=== PATIENT | female | born 1960 | race Asian ===

== ENCOUNTER 2017-10-07 18:12 | Emergency (ER) | payer OTHER ==
[2017-10-07] MEDS ORDERED: MORPHINE 10 MG/ML VIAL IVP STA (18:45)
[2017-10-07] MEDS ORDERED: SODIUM CHLORIDE 0.9% 1,000 ML IV ONE (18:45)
[2017-10-07 19:03] LABS: BILIRUBIN,URINE NEGATIVE (NEGATIVE); GLUCOSE, URINE (UA) NEGATIVE (NEGATIVE); KETONES,URINE (UA) NEGATIVE (NEGATIVE); LEUKOCYTE ESTERASE, URINE NEGATIVE (NEGATIVE); NITRITE,URINE NEGATIVE (NEGATIVE); OCCULT BLOOD,URINE NEGATIVE (NEGATIVE); PROTEIN,URINE NEGATIVE (NEGATIVE); UROBILINOGEN,URINE 0.2 (NORMAL) E.U./dL (NORMAL)
[2017-10-07 19:08] LABS: CLARITY,URINE CLEAR (CLEAR)
[2017-10-07] MEDS ORDERED: IOPAMIDOL-300 100 ML VIAL ONE (19:34)
[2017-10-07 19:56] LABS: BASOPHILS # (AUTO) 0.1 10^3/uL (0.0-0.1); BASOPHILS % (AUTO) 0.9 %; EOSINOPHILS # (AUTO) 0.1 10^3/uL (0.0-0.7); EOSINOPHILS % (AUTO) 1.5 %; LYMPHOCYTES # (AUTO) 1.4 10^3/uL (1.5-3.5); LYMPHOCYTES % (AUTO) 18.4 %; MEAN CORPUSCULAR HEMOGLOBIN 28.9 pg (27.0-31.0); MEAN CORPUSCULAR HGB CONC 31.4 g/dL (32.0-36.0); MEAN CORPUSCULAR VOLUME 91.9 fL (81.0-99.0); MEAN PLATELET VOLUME 7.4 fL (7.9-10.8); MONOCYTES # (AUTO) 0.4 10^3/uL (0.0-1.0); MONOCYTES % (AUTO) 5.6 %; NEUTROPHILS # (AUTO) 5.5 10^3/uL (1.5-6.6); NEUTROPHILS % (AUTO) 73.6 %; PLT - PLATELET COUNT 297 10^3/uL (130-450); RED BLOOD COUNT 4.17 10^6/uL (4.20-5.40); RED CELL DISTRIBUTION WIDTH 15.5 % (12.0-15.0); WHITE BLOOD COUNT 7.5 x10^3/uL (4.8-10.8)
[2017-10-07 20:10] LABS: ALBUMIN 3.6 g/dL (3.2-5.5); ALBUMIN/GLOBULIN RATIO 0.8 (1.0-2.2); BILIRUBIN,TOTAL 0.5 mg/dL (0.2-1.0); CALCIUM 9.6 mg/dL (8.5-10.3); CREATININE 0.7 mg/dL (0.4-1.0)
[2017-10-07] MEDS ORDERED: IOPAMIDOL-300 100 ML VIAL IVP ONE (21:18)
--- NOTE | 2017-10-07 21:43 | CT Report ---
Procedure Date: 10/07/2017 Accession Number: [id number] / [id number] Procedure: CT - Abdomen/Pelvis W/ CPT Code: FULL RESULT: EXAM: CT ABDOMEN AND PELVIS EXAM DATE: 10/07/2017 09:01 PM. CLINICAL HISTORY: Left lower quadrant pain. COMPARISONS: 01/12/2014. TECHNIQUE: Routine helical CT imaging was performed through the abdomen and pelvis. IV contrast: 85 ML ISOVUE 300. Enteric contrast: No. Reconstructions: Coronal and sagittal. In accordance with CT protocol optimization, one or more of the following dose reduction techniques were utilized for this exam: automated exposure control, adjustment of mA and/or KV based on patient size, or use of iterative reconstructive technique. FINDINGS: Lung Bases: Multiple small nodules seen in the right lung base measuring up to 8 mm in the right lower lobe. 16 mm subpleural nodular density in the left lower lobe. Left lower lobe subsegmental atelectasis or scar. Liver: 6 mm hypoattenuating lesion in the right lobe is not well characterized. Gallbladder/Bile Ducts: Unremarkable. Spleen: Normal. Pancreas: Normal. Adrenal Glands: Mild thickening of the left adrenal gland. Kidneys: No hydronephrosis. 1.2 cm hypoattenuating left renal cortical lesion. Peritoneal Cavity/Bowel: No bowel obstruction . No free fluid, free air or lymphadenopathy. No definite mass. No acute inflammatory changes. No evidence of diverticulitis or colitis. The appendix is well visualized and normal. Pelvic Organs: Mildly distended urinary bladder without wall thickening. Vasculature: No aneurysms or other significant abnormality. Bones: Extensive predominantly lytic osseous metastases throughout the visualized skeleton, primarily involving the spine and pelvis. There are numerous lesions in the sacrum. Permeative appearance of the left iliac wing. Probable healing pathologic fracture of the right inferior pubic ramus. No additional fracture identified. Other: Surgical material in the right breast. IMPRESSION: 1. Extensive osseous metastatic disease with permeative appearance of the sacrum and left iliac wing. Probable healing pathologic fracture of the right inferior pubic ramus. 2. Multiple nodules in the lung bases are nonspecific but suspicious for metastatic disease given the osseous findings. 3. No acute intra-abdominal abnormality. Mildly distended urinary bladder. RADIA
--- NOTE | 2017-10-07 21:56 | ED Physician Documentation ---
History of Present Illness - Stated complaint Stated Complaint: LOW BACK PX - Chief complaint Chief Complaint: Back Pain - History obtained from History obtained from: Patient, Family - History of Present Illness Timing: Chronic - Additonal information Additional information: Patient is a 56 year old female who is presenting to the emergency department for hip and abdominal pain. Patient has had pain in her hip and back for a few days. Patient went to see her doctor on the [employer] [facility] who sent her in for further evaluation. patient's primary care physician was worried that the patient had metastatic disease but also diverticulosis and has not had care in awhile. Review of Systems Constitutional: denies: Fever, Chills Cardiac: denies: Chest pain / pressure, Palpitations, Pedal edema Respiratory: denies: Dyspnea, Cough, Wheezing GI: reports: Abdominal Pain, Nausea. 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 HEENT: None Psych: None Musculoskeletal: None Derm: None - Present Medications Home Medications: Ambulatory Orders Medication Instructions Recorded Confirmed Oxycodone HCl/Acetaminophen 1 - 2 each PO Q6H PRN #14 tablet 10/07/17 [Percocet 5-325 mg Tablet] Sennosides [Senna] 8.6 mg PO BID #20 tablet 10/07/17 - Allergies Allergies/Adverse Reactions: Allergies Allergy/AdvReac Type Severity Reaction Status Date / Time codeine Allergy Rash Verified 10/07/17 18:22 - Social History Does the pt smoke?: No Smoking Status: Never smoker Does the pt drink ETOH?: No Does the pt have substance abuse?: No - Immunizations Immunizations are current?: Yes - POLST Patient has POLST: No PD ED PE NORMAL - Vitals Vital signs reviewed: Yes - General General: Alert and oriented X 3 - HEENT HEENT: Atraumatic - Neck Neck: Supple, no meningeal sign - Cardiac Cardiac: RRR, No murmur - Respiratory Respiratory: No respiratory distress - Neuro Neuro: Alert and oriented X 3, No motor deficit, Normal speech PD ED PE EXPANDED - General General: Alert, In Pain - HEENT HEENT: Dry mucous membranes - Abdomen Abdomen: Tender to palpation. No: Rebound, Guarding, LLQ - Extremities Extremities: Right hip (tenderness to palpation of right hip and back) Results - Vitals Vitals: Vital Signs - 24 hr 10/07/17 10/07/17 10/07/17 18:19 19:14 20:09 Temperature 36.5 C Heart Rate 71 71 71 Respiratory 18 16 16 Rate Blood Pressure 148/84 H 145/80 H 153/93 H O2 Saturation 98 97 97 10/07/17 10/07/17 20:13 21:10 Temperature Heart Rate 96 Respiratory 16 16 Rate Blood Pressure 145/87 H O2 Saturation 96 Oxygen O2 Source Room air - Labs Labs: Laboratory Tests 10/07/17 10/07/17 10/07/17 19:00 19:50 19:50 WBC 7.5 RBC 4.17 L Hgb 12.0 Hct 38.3 MCV 91.9 MCH 28.9 MCHC 31.4 L RDW 15.5 H Plt Count 297 MPV 7.4 L Neut # (Auto) 5.5 Lymph # (Auto) 1.4 L [place] # (Auto) 0.4 Eos # (Auto) 0.1 Baso # (Auto) 0.1 Absolute Nucleated RBC 0.01 Nucleated RBC % 0.1 Sodium 137 Potassium 3.9 Chloride 100 L Carbon Dioxide 26 Anion Gap 11.0 BUN 16 Creatinine 0.7 Estimated GFR (MDRD) 86 L Glucose 138 H Calcium 9.6 Total Bilirubin 0.5 AST 61 H ALT 27 Alkaline Phosphatase 387 H Total Protein 8.0 Albumin 3.6 Globulin 4.4 H Albumin/Globulin Ratio 0.8 L Lipase 61 H Urine Color YELLOW Urine Clarity CLEAR Urine pH 6.0 Ur Specific [place] <=1.005 Urine Protein NEGATIVE Urine Glucose (UA) NEGATIVE Urine Ketones NEGATIVE Urine Occult Blood NEGATIVE Urine Nitrite NEGATIVE Urine Bilirubin NEGATIVE Urine Urobilinogen 0.2 (NORMAL) Ur Leukocyte Esterase NEGATIVE Ur Microscopic Review NOT INDICATED Urine Culture Comments NOT INDICATED - Rads (name of study) ct abd pelvis Radiology: Final report received, See rad report (multiple lesions consistent with metastatic disease) PD MEDICAL DECISION MAKING - ED course Complexity details: reviewed old records, reviewed results, re-evaluated patient , considered differential, d/w patient, d/w family ED course: patient was seen and examined at bedside. iv access was gained and labs were drawn. patient was treated with morphine and a fluid bolus. imaging was ordered. when patient returned from imaging the results were reviewed and consistent with metastatic disease. patient and family were made aware of the findings. follow up care was arranged and patient was stable for discharge with outpatient follow up. - Sepsis Event Vital Signs: Vital Signs - 24 hr 10/07/17 10/07/17 10/07/17 18:19 19:14 20:09 Temperature 36.5 C Heart Rate 71 71 71 Respiratory 18 16 16 Rate Blood Pressure 148/84 H 145/80 H 153/93 H O2 Saturation 98 97 97 10/07/17 10/07/17 20:13 21:10 Temperature Heart Rate 96 Respiratory 16 16 Rate Blood Pressure 145/87 H O2 Saturation 96 Oxygen O2 Source Room air Departure - Departure Disposition: 01 Home, Self Care Clinical Impression: Metastatic cancer to bone Condition: Good Instructions: Chronic Pain Manage Meds Follow-Up: RAJANI RAY PA-C [Primary Care Provider] - Tomorrow Prescriptions: Oxycodone HCl/Acetaminophen [Percocet 5-325 mg Tablet] 1 - 2 each PO Q6H PRN # 14 tablet PRN Reason: pain Sennosides [Senna] 8.6 mg PO BID #20 tablet Comments: Your symptoms today are likely being caused by metastatic disease to the bone. you have multiple lesions in your hips and spine. You also have lesions in your lungs. It is important that you call your doctor tomorrow to schedule an appointment with an oncologist. I have had an order placed so that our clinic here at the hospital will be calling you as well. you can take ibuprofen for pain and percocet for breakthrough pain. You should take it with a laxative or stool softener. You may return to the emergency department at any time for new , worsening or uncontrollable symptoms.
[2017-10-07] MEDS ORDERED: oxyCODONE/ACET 5/325 Prepack 4 PO STA (22:10)
[2017-10-07 23:15] VITALS: BP 156/80
== END 2017-10-07 23:00 | disposition home or self-care (01) ==
LOC: ED 18:12
DX: C79.51 Secondary malignant neoplasm of bone (principal); R91.8 Other nonspecific abnormal finding of lung field
CPT/HCPCS: 36415; 74177; 80053; 81003; 83690; 85025; 96361; 96374; 99284; Q9967; 81001; 87086

== ENCOUNTER 2020-01-17 17:08 | Outpatient (CLI) | payer OTHER | END 2020-01-17 17:09 | disposition EMS.NT | LOC: EMS 17:08 | PROVIDERS: ATTEND Surgery | DX: M54.9 Dorsalgia, unspecified (principal) ==

== ENCOUNTER 2020-01-17 18:09 | Emergency (ER) | payer OTHER ==
--- NOTE | 2020-01-17 18:34 | XRAY Report ---
PROCEDURE: Chest 1 View X-Ray INDICATIONS: Chest Pain TECHNIQUE: One view of the chest was acquired. COMPARISON: None FINDINGS: Surgical changes and devices: Right breast clips.. Lungs and pleura: No pleural effusions or pneumothorax. Minimal patchy bibasilar atelectasis. Mediastinum: Mediastinal contours appear normal. Cardiomegaly. Bones and chest wall: No suspicious bony lesions. Overlying soft tissues appear unremarkable. IMPRESSION: Cardiomegaly. Minimal patchy bibasilar atelectasis. Reviewed by: Montana Daly MD on 01/17/2020 6:33 PM PDT Approved by: Montana Daly MD on 01/17/2020 6:33 PM PDT Station ID: [id number]
[2020-01-17 19:00] LABS: BASOPHILS # (AUTO) 0.1 10^3/uL (0.0-0.1); BASOPHILS % (AUTO) 0.7 %; EOSINOPHILS # (AUTO) 0.2 10^3/uL (0.0-0.7); EOSINOPHILS % (AUTO) 2.2 %; LYMPHOCYTES # (AUTO) 1.4 10^3/uL (1.5-3.5); LYMPHOCYTES % (AUTO) 20.2 %; MEAN CORPUSCULAR HEMOGLOBIN 29.2 pg (27.0-31.0); MEAN CORPUSCULAR HGB CONC 31.4 g/dL (32.0-36.0); MEAN CORPUSCULAR VOLUME 92.9 fL (81.0-99.0); MEAN PLATELET VOLUME 10.8 fL (7.9-10.8); MONOCYTES # (AUTO) 0.5 10^3/uL (0.0-1.0); MONOCYTES % (AUTO) 7.4 %; NEUTROPHILS # (AUTO) 4.7 10^3/uL (1.5-6.6); NEUTROPHILS % (AUTO) 69.2 %; PLT - PLATELET COUNT 207 10^3/uL (130-450); RED CELL DISTRIBUTION WIDTH 13.1 % (12.0-15.0); WHITE BLOOD COUNT 6.7 x10^3/uL (4.8-10.8)
--- NOTE | 2020-01-17 19:13 | ED Physician Documentation ---
PD HPI CHEST PAIN - Stated complaint Stated Complaint: CP, RAPID HEART RATE - Chief complaint Chief Complaint: Cardiac - History obtained from History obtained from: Patient, Family - History of Present Illness Timing - onset: How many days ago (2) Timing - details: Gradual onset Pain level max: 3 Pain level now: 0 Quality: Pressure Location: Left chest Radiation: No: Jaw, Neck, Back, Abdominal, Left upper extremity, Right upper extremity Improved by: No: Rest, Oxygen, Nitro, ASA, Antacids, Other medication Worsened by: No: Exertion, Inspiration, Eating, Movement, Palpation, Position Associated symptoms: No: Shortness of air, Diaphoresis, Nausea, Vomiting, Feeling faint / dizzy, General Weakness Recently seen: Not recently seen - Additional information Additional information: Patient is a 59-year-old female who presents to the emergency department with chest pain 2 to 3 days ago, lasted approximately 30 seconds, she then had another episode of chest pain yesterday that lasted about 2 minutes. No chest pain today. Family brought in for evaluation. Currently asymptomatic. Nothing makes it better or worse. Chest pain is in the left upper chest. [place] like palpitations or her heart skipping a beat. Patient states that she has no medical history and only takes atenolol. Upon further history from the family, she has a history of metastatic breast cancer, she stopped taking her medications a year ago. She states that she "told her doctor". She does not state that her doctor agreed with her stopping the medications. She has not followed up with her doctor or oncology for over a year. She was told that her hemoglobin A1c was elevated, but not told that she was diabetic. She does not know about her cholesterol history. She denies any cardiac history. Review of Systems Ten Systems: 10 systems reviewed and negative Constitutional: denies: Fever, Chills Ears: denies: Ear pain Nose: denies: Rhinorrhea / runny nose, Congestion Throat: denies: Sore throat Cardiac: reports: Palpitations Respiratory: denies: Cough GI: denies: Abdominal Pain, Nausea, Vomiting, Diarrhea, Hematemesis : denies: Dysuria, Frequency, Hesitancy Skin: denies: Rash Musculoskeletal: denies: Neck pain, Back pain Neurologic: denies: Headache PD PAST MEDICAL HISTORY - Past Medical History Past Medical History: Yes Cardiovascular: Hypertension Respiratory: None Neuro: None Endocrine/Autoimmune: None GI: None 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 HEENT: None Psych: None Musculoskeletal: None Derm: None - Present Medications Home Medications: Ambulatory Orders Medication Instructions Recorded Confirmed Atenolol [Tenormin] 50 DAILY PM 01/17/20 - Allergies Allergies/Adverse Reactions: Allergies Allergy/AdvReac Type Severity Reaction Status Date / Time codeine Allergy Rash Verified 01/17/20 18:12 - Living Situation Living Situation: reports: With family Living Arrangement: reports: At home - Social History Does the pt smoke?: No Smoking Status: Never smoker Does the pt drink ETOH?: No Does the pt have substance abuse?: No - Immunizations Immunizations are current?: Yes - POLST Patient has POLST: No PD ED PE NORMAL - Vitals Vital signs reviewed: Yes - General General: Alert and oriented X 3, No acute distress, Well developed/nourished - HEENT HEENT: PERRL, Moist mucous membranes - Neck Neck: Supple, no meningeal sign - Cardiac Cardiac: RRR, No murmur, Strong equal pulses - Respiratory Respiratory: No respiratory distress, Clear bilaterally - Abdomen Abdomen: Soft, Non tender, Non distended - Derm Derm: Warm and dry - Extremities Extremities: No edema, No calf tenderness / cord - Neuro Neuro: Alert and oriented X 3 - Psych Psych: Normal mood, Normal affect Results - Vitals Vitals: Vital Signs - 24 hr 01/17/20 01/17/20 01/17/20 18:12 19:19 19:25 Temperature 36.5 C 36.8 C Heart Rate 65 63 64 Respiratory 16 22 19 Rate Blood Pressure 177/86 H 145/82 H 145/82 H O2 Saturation 96 96 95 01/17/20 20:00 Temperature 36.8 C Heart Rate 61 Respiratory 20 Rate Blood Pressure 148/88 H O2 Saturation 97 Oxygen O2 Source Room air - EKG (time done) 1808 Rate: Rate (enter#) (65) Rhythm: NSR [place]: Normal Intervals: Normal IA QRS: Normal Ischemia: Normal ST segments - Labs Labs: Laboratory Tests 01/17/20 01/17/20 01/17/20 18:49 18:49 18:49 WBC 6.7 RBC 4.80 Hgb 14.0 Hct 44.6 MCV 92.9 MCH 29.2 MCHC 31.4 L RDW 13.1 Plt Count 207 MPV 10.8 Neut # (Auto) 4.7 Lymph # (Auto) 1.4 L [place] # (Auto) 0.5 Eos # (Auto) 0.2 Baso # (Auto) 0.1 Absolute Nucleated RBC 0.00 Nucleated RBC % 0.0 Sodium 136 Potassium 3.8 Chloride 98 L Carbon Dioxide 25 Anion Gap 13.0 BUN 17 Creatinine 0.7 Estimated GFR (MDRD) 85 L Glucose 337 H Calcium 9.5 Total Bilirubin 0.9 AST 27 ALT 10 Alkaline Phosphatase 168 H Troponin I High Sens 3.3 Total Protein 7.8 Albumin 4.0 Globulin 3.8 Albumin/Globulin Ratio 1.1 Lipase 37 - Rads (name of study) chest X-ray Radiology: Prelim report reviewed, EMP read contemporaneously, See rad report (no acute abnormality.) PD MEDICAL DECISION MAKING - ED course Complexity details: reviewed results, re-evaluated patient, considered differential (No ST elevation OK, no aortic dissection, no PE, no tension pneumothorax, no aortic aneurysm), d/w patient, d/w family ED course: Patient is a 59-year-old female who presents to the emergency department with chest pain a few days ago, sounds more consistent with palpitations. No evidence of acute coronary syndrome on EKG, troponin or chest x-ray. She does appear to be a diabetic. She has been noncompliant with her metastatic breast cancer medications as well. Patient counseled at length along with her family about the importance of follow-up and to follow-up with her doctor regarding further care of her diabetes. Patient counseled regarding signs and symptoms for which I believe and urgent re-evaluation would be necessary. Patient with good understanding of and agreement to plan and is comfortable going home at this time This document was made in part using voice recognition software. While efforts are made to proofread this document, sound alike and grammatical errors may occur. Departure - Departure Disposition: 01 Home, Self Care Clinical Impression: Palpitations, Hyperglycemia Condition: Good Instructions: ED Chest Pain Atypical Unkn Cause, ED Hyperglycemia New Susp Diabetes Follow-Up: [facility]OM[facility] [Provider Group] - Within 1 week Comments: Your blood sugar is over 300 today. You need to follow-up with your doctor this week to discuss medications and further testing as it appears that you have diabetes. You also need your cholesterol rechecked. You will likely need restaging of your breast cancer as well and may need new medication for this. You need a cardiac stress test as well. These can all be arranged with your doctor. Return if you worsen. Discharge Date/Time: 01/17/20 20:11
[2020-01-17 19:15] LABS: ALBUMIN/GLOBULIN RATIO 1.1 (1.0-2.2); BILIRUBIN,TOTAL 0.9 mg/dL (0.2-1.0); CALCIUM 9.5 mg/dL (8.5-10.3); CREATININE 0.7 mg/dL (0.4-1.0); TOTAL PROTEIN 7.8 g/dL (6.7-8.2)
[2020-01-17 20:11] VITALS: BP 148/88
== END 2020-01-17 20:11 | disposition home or self-care (01) ==
LOC: ED 18:09
DX: R00.2 Palpitations (principal); R73.9 Hyperglycemia, unspecified; Z85.3 Personal history of malignant neoplasm of breast; I10 Essential (primary) hypertension
CPT/HCPCS: 36415; 71045; 80053; 83690; 84484; 85025; 93005; 99284

== ENCOUNTER 2023-01-09 08:55 | Emergency (ER) | payer OTHER ==
[2023-01-09 09:23] VITALS: BP 129/76; O2SAT 97
--- NOTE | 2023-01-09 09:23 | ED Physician Documentation ---
History of Present Illness - Stated complaint Stated Complaint: BACK PX - Chief complaint Chief Complaint: Back Pain - History obtained from History obtained from: Patient, Family - Additonal information Additional information: Patient is a 62-year-old female with a history of metastatic breast cancer presenting for the evaluation of right lower back pain into the right hip. She has had this pain previously and it started up again last night. She tried Tylenol and an ointment without any improvement. She was recently admitted to [facility] for hypercalcemia, confusion and MIRNA. Patient denies saddle anesthesia, bowel or bladder incontinence. who is with her states that she has some confusion regarding her recent hospitalization as patient does not feel that doctors explained to her what was going on. However he states that she has been doing better since being at home and that her mentation is back to baseline now. again denies that patient is confused today (contrary to triage note). From Discharge SUmmary [facility] (Dec 27 - Jan 02) Mee Aden is a 62 y.o. female with history of hypertension, type II diabetes, and right breast cancer with metastasis to left temporal dura and bone who presented to the ED with complaints of fatigue, nausea, confusion and abnormal labs. Patient admitted for severe hypercalcemia, MIRNA, confusion and vasogenic edema. Nephrology was consulted and she was given calcitonin, denosumab and NS gtt with improvement. Her MIRNA improved. She was started on decadron for vasogenic edema noted with left temporal dura mass. Hospital course was complicated by altered mental status with patient frequently refusing cares. Palliative care was consulted and patient was DNR/DNR with continued full treatment goals to moiz t extent. Patient was anxious to go home and family was very supportive. She had significantly elevated blood sugars in the setting of her type 2 diabetes and steroid use though refused glucose checks and insulin. Prior to discharge her glucose was greater than 400. I had a conversation with the patient and her family. The patient was adamant she wanted to leave and the family understood the risks of going home and the potential to develop DKA, worsening kidney injury, even . We discussed utilizing glipizide and this was prescribed in an effort for harm reduction given patient may be more compliant with this in the home setting. We planned for very close follow-up and monitoring of her blood sugars, kidney function and electrolytes. 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: Breast cancer : None HEENT: None Psych: None Musculoskeletal: None Derm: None - Past Surgical History /DEPUTY COMMISSIONER: section, Other - Present Medications Home Medications: Ambulatory Orders Medication Instructions Recorded Confirmed Atenolol [Tenormin] 50 DAILY PM 01/17/20 Lidocaine Patch 5% [Lidoderm Patch] 1 patch TOP DAILY PRN #10 patch 01/09/23 oxyCODONE [Roxicodone] 5 mg PO Q6H PRN #15 tablet 01/09/23 - Allergies Allergies/Adverse Reactions: Allergies Allergy/AdvReac Type Severity Reaction Status Date / Time codeine Allergy Rash Verified 01/17/20 18:12 - Social History Does the pt smoke?: No Smoking Status: Never smoker Does the pt drink ETOH?: No Does the pt have substance abuse?: No - Immunizations Immunizations are current?: Yes - POLST Patient has POLST: No PD ED PE NORMAL - General General: Alert and oriented X 3, No acute distress, Well developed/nourished - HEENT HEENT: Atraumatic, Moist mucous membranes, Pharynx benign - Neck Neck: Supple, no meningeal sign - Cardiac Cardiac: RRR, No murmur - Respiratory Respiratory: No respiratory distress, Clear bilaterally - Abdomen Abdomen: Normal bowel sounds, Soft, Non tender, Non distended - Back Back: No spinal TTP, Other (Mild right paralumbar tenderness to palpation into right hip) - Derm Derm: Warm and dry - Extremities Extremities: Other (Normal range of motion of right hip, no pelvic instability, distal pulses intact) Results - Vitals Vitals: Vital Signs - 24 hr 01/09/23 09:11 Temperature 37.1 C Heart Rate 69 Respiratory 14 Rate Blood Pressure 129/76 O2 Saturation 97 Oxygen O2 Source Room air - Labs Labs: Laboratory Tests 01/09/23 01/09/23 01/09/23 10:19 10:19 10:35 WBC 11.9 H RBC 3.17 L Hgb 9.3 L Hct 29.3 L MCV 92.4 MCH 29.3 MCHC 31.7 L RDW 14.0 Plt Count 284 MPV 8.7 Neut # (Auto) Not Reportable Lymph # (Auto) Not Reportable [place] # (Auto) Not Reportable Eos # (Auto) Not Reportable Baso # (Auto) Not Reportable Absolute Nucleated RBC Not Reportable Total Counted 100 Band Neuts % (Manual) 1 Abnorm Lymph % (Manual) 0 Myelocytes % 1 H Nucleated RBC % Not Reportable Neutrophils # (Manual) 9.5 H Lymphocytes # (Manual) 1.8 Monocytes # (Manual) 0.5 Eosinophils # (Manual) 0.0 Basophils # (Manual) 0.0 Nucleated RBCs 1 Differential Comment MANUAL DIFFERENTIAL WBC Morphology 1+ VACUOLATION RBC Morph Micro Appear 1+ HYPOCHROMASIA Sodium 133 L Potassium 4.3 Chloride 102 Carbon Dioxide 21 Anion Gap 10.0 BUN 39 H Creatinine 1.0 Estimated GFR (MDRD) 56 L Glucose 336 H Calcium 7.8 L Total Bilirubin 0.4 AST 20 ALT 12 Alkaline Phosphatase 439 H Total Protein 6.8 Albumin 3.3 Globulin 3.5 Albumin/Globulin Ratio 0.9 L Lipase 141 H Urine Color YELLOW Urine Clarity CLEAR Urine pH 6.0 Ur Specific Critz 1.010 Urine Protein NEGATIVE Urine Glucose (UA) >=1000 H Urine Ketones NEGATIVE Urine Occult Blood NEGATIVE Urine Nitrite NEGATIVE Urine Bilirubin NEGATIVE Urine Urobilinogen 0.2 (NORMAL) Ur Leukocyte Esterase NEGATIVE Ur Microscopic Review NOT INDICATED Urine Culture Comments NOT INDICATED PD Medical Decision Making - ED course Complexity details: reviewed results, re-evaluated patient, d/w patient, d/w family ED course: Patient is a 62-year-old female with a history of metastatic breast cancer presenting for evaluation of right lower back pain into the right hip. She was recently hospitalized for hypercalcemia and MIRNA. No midline spinal tenderness. No symptoms to suggest cauda equina or epidural abscess. She has good range of motion of the right hip and was able to ambulate today. No signs of a septic joint. A CBC, chemistries and urinalysis were obtained and reviewed. Calcium today is actually slightly on the low side at 7.5. Renal function appears improved from recent hospitalization. Urine is negative for infection.She is not confused here. No neurodeficits. Patient had improvement with her pain with lidocaine patch and acetaminophen. CT of the abdomen and pelvis was obtained given her history of metastatic breast cancer. There are sclerotic lesions seen throughout consistent with metastatic disease. This was also noted on CT scan in [facility] in August 2022. No fractures. Also 2 small lesions seen in the liver which I explained to the patient. She has a follow-up appointment with her PCP tomorrow. Patient was given her prescription for oxycodone to use as needed. She is counseled on the need for close follow-up with PCP as well as oncology. 1225 - Patient reports that she is feeling better. Lidocaine and Tylenol have helped with her pain. CT report is pending. Departure - Departure Disposition: Home, Self Care Clinical Impression: Right hip pain, Metastatic disease, Hyperglycemia Condition: Stable Instructions: ED Neck Back Pain General Follow-Up: Ace Moulton MD [Physician No Access] - Prescriptions: Lidocaine Patch 5% [Lidoderm Patch] 1 patch TOP DAILY PRN #10 patch PRN Reason: pain oxyCODONE [Roxicodone] 5 mg PO Q6H PRN #15 tablet PRN Reason: Pain Comments: Your evaluated for pain in your low back and in your right hip. Your labs today show that your calcium is slightly lower than normal range and your renal function is better than when you were previously admitted at [facility]. Your CT results are below.Please have close follow-up with your oncologist and PCP. Your blood sugar was also elevated. Please make sure to keep your appointment with your PCP tomorrow. I sent a small amount of narcotic pain medication to the [facility] pharmacy in [place]. I am prescribing a short course of narcotic pain medication for you. These are potentially dangerous and addictive medications that should be used carefully. These medications may constipate you. Take an ztiv-ybg-rvorabz stool softener (docusate) twice daily with plenty of water while taking these medications. If you go 24 hours without a bowel movement, take [id number] miralax, per package instructions. Do not drink or drive while taking these medications. If you received narcotic or sedating medications while in the emergency department, do not drive for 24 hours. Store this medication in a safe, secure place and out of reach of children. It is a violation of federal law to give or sell this medication to another pers on or to use in a manner other than prescribed. The ED will not refill narcotic prescriptions, including prescriptions lost or stolen. To dispose of unwanted medications: 1. [facility] at [address] in [place] has a medication drop box. They accept prescription medications (in pill form) Saturday through Saturday 9:00 a.m. to 5:00 p.m. 2. The [facility] [employer] accepts prescription medications (in pill form only) for disposal year round. Call for more information. 3. Contact the [facility] for the next [facility] sponsored prescription drug collection event. , [phone], or [phone]; Note that many narcotic pain relievers also contain Tylenol/acetaminophen. Please ensure that your total dose of acetaminophen from all sources does not exceed 3 g (3000 mg) per day. CT ABD/PELVIS IMPRESSION: Marked interval progression of sclerotic permeative appearing lesions within the axial and appendicular skeleton most consistent with metastatic disease. No definitive fractures identified. Low-attenuation focus within the liver too small to definitively characterize, stable and likely small cyst. Two new low-attenuation foci within the liver also too small to definitively characterize. Given osseous findings, these could represent small cysts or hemangiomas but meta static foci cannot be definitively excluded. Follow-up attention to these regions on subsequent exams is recommended.. Discharge Date/Time: 01/09/23 13:47
[2023-01-09] MEDS ORDERED: SODIUM CHLORIDE 0.9% 500 ML IV STA (09:38)
[2023-01-09] MEDS ORDERED: LIDOCAINE PATCH 5% TOP STA (09:39)
[2023-01-09] MEDS ORDERED: ACETAMINOPHEN 500 MG TABLET PO STA (09:39)
[2023-01-09 10:29] LABS: BASOPHILS % (AUTO) 0.2 %; EOSINOPHILS % (AUTO) 0.3 %; HCT - HEMATOCRIT 29.3 % (37.0-47.0); HGB - HEMOGLOBIN 9.3 g/dL (12.0-16.0); LYMPHOCYTES % (AUTO) 8.7 %; MEAN CORPUSCULAR HEMOGLOBIN 29.3 pg (27.0-31.0); MEAN CORPUSCULAR HGB CONC 31.7 g/dL (32.0-36.0); MEAN CORPUSCULAR VOLUME 92.4 fL (81.0-99.0); MEAN PLATELET VOLUME 8.7 fL (7.9-10.8); MONOCYTES % (AUTO) 4.4 %; NEUTROPHILS % (AUTO) 81.1 %; PLT - PLATELET COUNT 284 10^3/uL (130-450); RED BLOOD COUNT 3.17 10^6/uL (4.20-5.40); WHITE BLOOD COUNT 11.9 x10^3/uL (4.8-10.8)
[2023-01-09 10:39] LABS: ABNORMAL LYMPHS % (MANUAL) 0 %
[2023-01-09 10:42] LABS: BILIRUBIN,URINE NEGATIVE (NEGATIVE); GLUCOSE, URINE (UA) >=1000 mg/dL (NEGATIVE); KETONES,URINE (UA) NEGATIVE (NEGATIVE); LEUKOCYTE ESTERASE, URINE NEGATIVE (NEGATIVE); NITRITE,URINE NEGATIVE (NEGATIVE); OCCULT BLOOD,URINE NEGATIVE (NEGATIVE); PROTEIN,URINE NEGATIVE (NEGATIVE); UROBILINOGEN,URINE 0.2 (NORMAL) E.U./dL (NORMAL)
[2023-01-09 10:43] LABS: CLARITY,URINE CLEAR (CLEAR)
[2023-01-09 10:46] LABS: ALBUMIN 3.3 g/dL (3.2-5.5); ALBUMIN/GLOBULIN RATIO 0.9 (1.0-2.2); BILIRUBIN,TOTAL 0.4 mg/dL (0.2-1.0); CALCIUM 7.8 mg/dL (8.5-10.3); POTASSIUM 4.3 mmol/L (3.5-4.5); TOTAL PROTEIN 6.8 g/dL (6.4-8.9)
[2023-01-09 11:14] LABS: BAND NEUTROPHILS % (MANUAL) 1 %; LYMPHOCYTES # (MANUAL) 1.8 10^3/uL (1.5-3.5); LYMPHOCYTES % (MANUAL) 15 %; MONOCYTES # (MANUAL) 0.5 10^3/uL (0.0-1.0); MYELOCYTES % (MANUAL) 1 %; NEUTROPHILS # (MANUAL) 9.5 10^3/uL (1.5-6.6); NUCLEATED RBC (MANUAL) 1 %
[2023-01-09 11:16] LABS: DIFFERENTIAL COMMENT MANUAL DIFFERENTIAL; RBC MORPHOLOGY (MULTIPLE) 1+ HYPOCHROMASIA (NORMAL); WBC MORPHOLOGY (MULTIPLE) 1+ VACUOLATION (NORMAL)
[2023-01-09] MEDS ORDERED: iohexoL-300 100 ML VIAL IVP ONE (12:38)
--- NOTE | 2023-01-09 12:45 | CT Report ---
PROCEDURE: ABDOMEN/PELVIS W INDICATIONS: R hip and LLQ pain CONTRAST: 100ML OMNI 300 TECHNIQUE: After the administration of IV contrast, 5 mm thick sections acquired from the diaphragms to the symp hysis. 5 mm thick coronal and sagittal reformats were acquired. For radiation dose reduction, the f ollowing was used: automated exposure control, adjustment of mA and/or kV according to patient size. COMPARISON: CT abdomen pelvis 10/07/2017 FINDINGS: Image quality: Excellent. Lung bases and heart: Heart is enlarged. Liver: 4 mm low-attenuation focus within the posterior right hepatic lobe on series 2 image 27, uncha nged compared to prior exam.. Ill-defined 7 mm focus in the right hepatic lobe on series 2 image 17 i s present as well as a similar less prominent. Focus in the anterior left lobe on series 2 also image 17. The 2 latter lesions are new. Gallbladder and biliary tree: Unremarkable. Spleen: No splenomegaly. Pancreas: No pancreatic ductal dilation. Adrenals: No adrenal nodule. Kidneys and ureters: No hydronephrosis. No renal cystic lesion which requires follow up. No solid mas s. Low-attenuation foci are present consistent with simple cysts. Bowel and peritoneum: No bowel distension. No pathologic free fluid. Moderate colonic stool without o bstruction. Lymph nodes: No central or retroperitoneal adenopathy. Vessels: No infrarenal aortic aneurysm. PELVIS Reproductive organs: Unremarkable. Bladder: No abnormal wall thickening, accounting for underdistension. Pelvic lymph nodes: No pelvic adenopathy by size criteria. Bones: Diffuse appearance of mottled sclerosis within the axial and appendicular skeleton. This is pr ogressive compared to prior exam. No pathologic fracture. Other: No significant ventral or inguinal hernia. Clips are present overlying the right lateral breas t/axilla. IMPRESSION: Marked interval progression of sclerotic permeative appearing lesions within the axial and appendicul ar skeleton most consistent with metastatic disease. No definitive fractures identified. Low-attenuation focus within the liver too small to definitively characterize, stable and likely smal l cyst. Two new low-attenuation foci within the liver also too small to definitively characterize. Given osse ous findings, these could represent small cysts or hemangiomas but metastatic foci cannot be definiti vely excluded. Follow-up attention to these regions on subsequent exams is recommended.. Reviewed by: Shahana Menon MD on 01/09/2023 12:44 PM PDT Approved by: Shahana Menon MD on 01/09/2023 12:44 PM PDT Station ID: [id number]
== END 2023-01-09 13:47 | disposition home or self-care (01) ==
LOC: ED 08:55
DX: C50.919 Malignant neoplasm of unspecified site of unspecified female breast (principal); C79.51 Secondary malignant neoplasm of bone; R73.9 Hyperglycemia, unspecified; R93.2 Abnormal findings on diagnostic imaging of liver and biliary tract
CPT/HCPCS: 36415; 74177; 80053; 81003; 83690; 85025; 96360; 99284; A9270; Q9967; 81001; 87086

== ENCOUNTER 2023-03-04 14:33 | Emergency (ER) | payer OTHER ==
--- NOTE | 2023-03-04 15:18 | ED Physician Documentation ---
PD HPI FOCAL NEURO - Stated complaint Stated Complaint: SIMMONS,BACK PX - Chief complaint Chief Complaint: Neuro - History obtained from History obtained from: Patient, Family - Additional information Additional information: 62-year-old woman with history of breast cancer, more recently found to have metastases including the left temporal bone and widespread in the skeleton. She started chemotherapy back in October but then was for a time lost to follow-up as she went to the [facility]. More recently returned and was admitted to [facility] a couple of times for hypercalcemia, MIRNA, confusion, and vasogenic edema. She has an appointment with her oncologist soon but the pain especially the headache, left back and left posterior hip area is intolerable. She is not taking anything for pain. She is also developed vision changes and double vision. 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 Mets to the brain. - Past Surgical History Past Surgical History: Yes /FLAT EXAMINER: section, Other - Present Medications Home Medications: Ambulatory Orders Medication Instructions Recorded Confirmed Atenolol [Tenormin] 50 DAILY PM 01/17/20 Lidocaine Patch 5% [Lidoderm Patch] 1 patch TOP DAILY PRN #10 patch 01/09/23 oxyCODONE [Roxicodone] 5 mg PO Q6H PRN #15 tablet 01/09/23 - Allergies Allergies/Adverse Reactions: Allergies Allergy/AdvReac Type Severity Reaction Status Date / Time codeine Allergy Rash Verified 03/04/23 15:07 - Social History Does the pt smoke?: No Smoking Status: Never smoker Does the pt drink ETOH?: No Does the pt have substance abuse?: No - Immunizations Immunizations are current?: No - POLST Patient has POLST: No PD ED PE NORMAL - Vitals Vital signs reviewed: Yes - General General: No acute distress, Well developed/nourished - HEENT HEENT: Other (Limited abduction of the left eye with a dilated pupil on the left and a ptosis on the left.) - Neck Neck: Supple, no meningeal sign, No bony TTP - Cardiac Cardiac: RRR, No murmur - Respiratory Respiratory: No respiratory distress, Clear bilaterally - Abdomen Abdomen: Non tender - Back Back: No CVA TTP, No spinal TTP - Derm Derm: Normal color, Warm and dry - Extremities Extremities: No edema, No calf tenderness / cord - Neuro Neuro: Alert and oriented X 3, No motor deficit, No sensory deficit. No: business attorney 2- 12 intact Eye Opening: Spontaneous Motor: Obeys Commands Verbal: Oriented GCS Score: 15 - Psych Psych: Normal mood, Normal affect Results - Vitals Vitals: Vital Signs - 24 hr 03/04/23 03/04/23 15:01 17:24 Temperature 37.7 C Heart Rate 113 H 88 Respiratory 14 15 Rate Blood Pressure 142/84 H 148/91 H O2 Saturation 98 94 Oxygen O2 Source Room air - Labs Labs: Laboratory Tests 03/04/23 03/04/23 15:28 15:28 WBC 8.8 RBC 3.33 L Hgb 9.6 L Hct 31.4 L MCV 94.3 MCH 28.8 MCHC 30.6 L RDW 17.2 H Plt Count 203 MPV 9.4 Neut # (Auto) 7.1 H Lymph # (Auto) 1.0 L [facility] # (Auto) 0.6 Eos # (Auto) 0.0 Baso # (Auto) 0.0 Absolute Nucleated RBC 0.04 Nucleated RBC % 0.5 Sodium 130 L Potassium 4.1 Chloride 96 L Carbon Dioxide 25 Anion Gap 9.0 BUN 26 H Creatinine 0.8 Estimated GFR (MDRD) 72 L Glucose 427 H Calcium 8.8 Phosphorus 3.4 Magnesium 1.8 Total Bilirubin 0.4 AST 30 ALT 9 L Alkaline Phosphatase 368 H Total Protein 6.3 L Albumin 3.3 Globulin 3.0 Albumin/Globulin Ratio 1.1 PD Medical Decision Making - ED course ED course: 62-year-old woman with known metastatic breast cancer presents with worsening symptoms of pain including headache, posterior thorax and left low back probably related to metastatic disease. Recent admission for hypercalcemia but today her calcium is normal. She has mild prerenal azotemia and an elevated alkaline phosphatase likely from the bony mets. She is significantly hyperglycemic. She does have a history of mild type 2 diabetes but is likely having the hyperglycemia from the dexamethasone. She was sent over for CTs of the head, chest, and abdomen and on my "wet read" she has very large left-sided brain metastasis with midline shift and vasogenic edema. She also has worsening signs of metastases in her liver. This was discussed with the patient and and the need for transfer for urgent therapy and likely radiation was discussed and they are amenable at this point and we called [place] for potential transfer at about 5 PM. She was administered 20 mg of IV dexamethasone and a small dose of IV insulin. Care to Dr. Youssef at 6 PM shift change pending callback from [place]. Departure - Departure Disposition: 02 Transfer Acute Care Hosp Clinical Impression: Metastatic cancer to bone, Metastatic cancer to brain, Midline shift of brain with brain compression, Hyperglycemia Condition: Serious Forms: PCP List
[2023-03-04] MEDS ORDERED: SODIUM CHLORIDE 0.9% 1,000 ML IV STA (15:19)
[2023-03-04] MEDS ORDERED: HYDROmorphone 1 MG/ML CARPUJECT IVP STA (15:19)
[2023-03-04 15:33] LABS: BASOPHILS % (AUTO) 0.1 %; EOSINOPHILS % (AUTO) 0.2 %; HCT - HEMATOCRIT 31.4 % (37.0-47.0); HGB - HEMOGLOBIN 9.6 g/dL (12.0-16.0); LYMPHOCYTES % (AUTO) 11.2 %; MEAN CORPUSCULAR HEMOGLOBIN 28.8 pg (27.0-31.0); MEAN CORPUSCULAR HGB CONC 30.6 g/dL (32.0-36.0); MEAN CORPUSCULAR VOLUME 94.3 fL (81.0-99.0); MEAN PLATELET VOLUME 9.4 fL (7.9-10.8); MONOCYTES # (AUTO) 0.6 10^3/uL (0.0-1.0); NEUTROPHILS # (AUTO) 7.1 10^3/uL (1.5-6.6); NEUTROPHILS % (AUTO) 80.4 %; NRBC ABSOLUTE COUNT (AUTO) 0.04 x10^3/uL; NUCLEATED RED BLOOD CELLS AUTO 0.5 /100WBC; PLT - PLATELET COUNT 203 10^3/uL (130-450); RED BLOOD COUNT 3.33 10^6/uL (4.20-5.40); RED CELL DISTRIBUTION WIDTH 17.2 % (12.0-15.0); WHITE BLOOD COUNT 8.8 x10^3/uL (4.8-10.8)
[2023-03-04 15:48] LABS: ALBUMIN 3.3 g/dL (3.2-5.5); ALBUMIN/GLOBULIN RATIO 1.1 (1.0-2.2); BILIRUBIN,TOTAL 0.4 mg/dL (0.2-1.0); CALCIUM 8.8 mg/dL (8.5-10.3); CREATININE 0.8 mg/dL (0.6-1.3); MAGNESIUM 1.8 mg/dL (1.7-2.3); PHOSPHORUS 3.4 mg/dL (2.5-5.0); POTASSIUM 4.1 mmol/L (3.5-4.5); TOTAL PROTEIN 6.3 g/dL (6.4-8.9)
[2023-03-04] MEDS ORDERED: iohexoL-300 100 ML VIAL IVP ONE (16:51)
[2023-03-04] MEDS ORDERED: DEXAMETHASONE 10 MG/ML VIAL IVP STA (17:01)
[2023-03-04] MEDS ORDERED: INSULIN REGULAR HUMAN 300 UNIT/3 ML VIAL IVP STA (17:01)
--- NOTE | 2023-03-04 18:12 | CT Report ---
PROCEDURE: HEAD W/WO INDICATIONS: headache, known brca/mets TECHNIQUE: 4.5 mm thick angled axial sections acquired from the foramen magnum to the vertex before and after th e administration of intravenous contrast. For radiation dose reduction, the following was used: aut omated exposure control, adjustment of mA and/or kV according to patient size. CONTRAST: 100mL Omni 300 COMPARISON: CT 02/17/2023 (on [facility] system) FINDINGS: Image quality: Excellent. CSF Spaces: Basal cisterns are patent. No extra-axial fluid collections. Ventricles are normal in size and shape. 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 There i s severe associated vasogenic edema and severe mass effect, resulting in a 5 mm left to right midline shift. Early subfalcine hernia is suspected. Skull and face: The deep to the metastatic deposit, there is a sclerotic bone of the pterion, with il l-defined margins along the inner margin of the skull plate. Sinuses: Visualized sinuses and mastoids are clear. 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 This does not appear significantly changed since 02/17/2023. Early subfalcine herniation is likely, but similar to prior. No evidence of uncal herniation and the basal cisterns are patent. Above discussed with Dr. Youssef at the time of dictation. Reviewed by: Alex Meza on 03/04/2023 5:11 PM [place] Approved by: Alex Meza on 03/04/2023 5:11 PM [facility] Station ID: [id number]
--- NOTE | 2023-03-04 18:20 | CT Report ---
PROCEDURE: CHEST W INDICATIONS: IV only, increased back pain BRCA w Mets CONTRAST: 100mL Omni 300 TECHNIQUE: After the administration of intravenous contrast, 1 mm axial images were acquired from the pulmonary apices through the posterior costophrenic angles. Axial 5 mm soft tissue kernel reconstructions were performed as well as 8 mm axial MIP and coronal and sagittal 5 mm reformations. For radiation dose reduction, the following was used: automated exposure control, adjustment of mA and/or kV according to patient size. COMPARISON: None. FINDINGS: Image quality: Excellent. Lungs and pleura: No consolidation. No pleural effusions. No pneumothorax. Right lower lobe nodule m easuring 2 cm (series 3, image 151). 0.4 cm right middle lobe nodule (series 3, image 169). Mediastinum: Heart size is normal. No pericardial effusion. No large vessel abnormality. No mediastin al adenopathy by size criteria. Chest wall and lower neck: Thyroid is unremarkable. No axillary or supraclavicular adenopathy by size . Right breast lumpectomy. Calcified right axillary nodules. Bones: Diffuse osseous metastatic disease. Compression deformities of the T1, T3 and T6 vertebral bod ies, without endplate retropulsion. No soft tissue mass extending into the spinal canal. Upper Abdomen: Unremarkable. IMPRESSION: Diffuse osseous metastatic disease, with compression deformities of the T1, T3 and T6 vertebral becky s, without endplate retropulsion. No soft tissue mass within the spinal cord identified. Right breast lumpectomy. Calcified right axillary lymph nodes. Right lung pulmonary metastases. Diffuse osseous metastatic disease. Reviewed by: Alex Meza on 03/04/2023 5:18 PM [place] Approved by: Alex Meza on 03/04/2023 5:18 PM [place] Station ID: [id number]
--- NOTE | 2023-03-04 18:27 | CT Report ---
PROCEDURE: ABDOMEN/PELVIS W INDICATIONS: IV only, increased back pain BRCA w Mets CONTRAST: 100mL Omni 300 TECHNIQUE: After the administration of intravenous contrast, 5 mm thick sections acquired from the diaphragms to the symphysis. 5 mm thick coronal and sagittal reformats were acquired. For radiation dose reducti on, the following was used: automated exposure control, adjustment of mA and/or kV according to woo ent size. COMPARISON: 01/09/2023 FINDINGS: Image quality: Excellent. Lung bases and heart: Please see dedicated chest CT. Liver: New and growing liver metastases. For instance, 1.8 cm segment 7 mass previously measured 0.8 cm (series 2, image 26), and there is a new 1.3 cm segment 2 mass (series 2, image 26). Gallbladder and biliary tree: Cholelithiasis without wall thickening. No biliary dilation. Spleen: No splenomegaly. Pancreas: No pancreatic ductal dilation. Adrenals: No adrenal nodule. Kidneys and ureters: No hydronephrosis. No renal cystic lesion which requires follow up. Subcentimete r fat-containing mass on the superior pole of the right kidney, most consistent with an angiomyolipom a. Bowel and peritoneum: No bowel distension. No pathologic free fluid. Fecal debris within the small dilip wel. Lymph nodes: No central or retroperitoneal adenopathy. Vessels: No infrarenal aortic aneurysm. PELVIS Reproductive organs: Unremarkable. Bladder: No abnormal wall thickening, accounting for underdistension. Pelvic lymph nodes: No pelvic adenopathy by size criteria. Bones: Diffuse osseous metastatic disease. No intraspinous soft tissue mass. No definite pathologic f racture. Other: No significant ventral or inguinal hernia. IMPRESSION: Diffuse osseous metastatic disease, without pathologic fracture identified. No intraspinous mass iden tified. New and growing liver metastases. Reviewed by: Alex Meza on 03/04/2023 5:25 PM [facility] Approved by: Alex Meza on 03/04/2023 5:25 PM [facility] Station ID: [id number]
--- NOTE | 2023-03-04 19:51 | ED Physician Documentation ---
ED Addendum - Addendum Addendum: Please see Dr. Boss's note for full H&P on this patient. I spoke with Dr. Cartagena, neurosurgery at [facility]. I reviewed the patient's CT scan including the vasogenic edema and midline shift. Reviewed the headache and focal neurological deficits. He recommends transfer to the hospitalist service for full workup of her metastatic breast cancer and neurosurgery can consult. I then spoke with Dr. Dickerson, the hospitalist who accepts in transfer. The patient will be held in the emergency department here pending bed availability. She will be maintained on dexamethasone 6 mg every 6 hours. I reviewed the CT scan endings with the radiologist, he did compare them to a recent CT scan from February [address] [facility]. No significant change. Patient will be signed out to the oncoming emergency department physician. PROCEDURE: HEAD W/WO INDICATIONS: headache, known brca/mets TECHNIQUE: 4.5 mm thick angled axial sections acquired from the foramen magnum to the vertex before and after the administration of intravenous contrast. For radiation dose reduction, the following was used: automated exposure control, adjustment of mA and/or kV according to patient size. CONTRAST: 100mL Omni 300 COMPARISON: CT 02/17/2023 (on [facility] system) FINDINGS: Image quality: Excellent. CSF Spaces: Basal cisterns are patent. No extra-axial fluid collections. Ventricles are normal in size and shape. 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 There is severe associated vasogenic edema and severe mass effect, resulting in a 5 mm left to right midline shift. Early subfalcine hernia is suspected. Skull and face: The deep to the metastatic deposit, there is a sclerotic bone of the pterion, with ill-defined margins along the inner margin of the skull plate. Sinuses: Visualized sinuses and mastoids are clear. 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 This does not appear significantly changed since 02/17/2023. Early subfalcine herniation is likely, but similar to prior. No evidence of uncal herniation and the basal cisterns are patent. Above discussed with Dr. Youssef at the time of dictation. PROCEDURE: CHEST W INDICATIONS: IV only, increased back pain BRCA w Mets CONTRAST: 100mL Omni 300 TECHNIQUE: After the administration of intravenous contrast, 1 mm axial images were acquired from the pulmonary apices through the posterior costophrenic angles. Axial 5 mm soft tissue kernel reconstructions were performed as well as 8 mm axial MIP and coronal and sagittal 5 mm reformations. For radiation dose reduction, the following was used: automated exposure control, adjustment of mA and/or kV according to patient size. COMPARISON: None. FINDINGS: Image quality: Excellent. Lungs and pleura: No consolidation. No pleural effusions. No pneumothorax. Right lower lobe nodule measuring 2 cm (series 3, image 151). 0.4 cm right middle lobe nodule (series 3, image 169). Mediastinum: Heart size is normal. No pericardial effusion. No large vessel abnormality. No mediastinal adenopathy by size criteria. Chest wall and lower neck: Thyroid is unremarkable. No axillary or supraclavicular adenopathy by size. Right breast lumpectomy. Calcified right axillary nodules. Bones: Diffuse osseous metastatic disease. Compression deformities of the T1, T3 and T6 vertebral bodies, without endplate retropulsion. No soft tissue mass extending into the spinal canal. Upper Abdomen: Unremarkable. IMPRESSION: Diffuse osseous metastatic disease, with compression deformities of the T1, T3 and T6 vertebral bodies, without endplate retropulsion. No soft tissue mass within the spinal cord identified. Right breast lumpectomy. Calcified right axillary lymph nodes. Right lung pulmonary metastases. Diffuse osseous metastatic disease. Reviewed by: Alex Meza on 03/04/2023 5:18 PM [place] Approved by: Alex Meza on 03/04/2023 5:18 PM [facility] Station ID: [id number] Report Electronically Signed by Alex Meza MD 03/04/[id number]/04/[id number] cc: Levi Boss MD ED ADDENDUM ORIGINAL REPORT PROCEDURE: CHEST W INDICATIONS: IV only, increased back pain BRCA w Mets CONTRAST: 100mL Omni 300 TECHNIQUE: After the administration of intravenous contrast, 1 mm axial images were acquired from the pulmonary apices through the posterior costophrenic angles. Axial 5 mm soft tissue kernel reconstructions were performed as well as 8 mm axial MIP and coronal and sagittal 5 mm reformations. For radiation dose reduction, the following was used: automated exposure control, adjustment of mA and/or kV according to patient size. COMPARISON: None. FINDINGS: Image quality: Excellent. Lungs and pleura: No consolidation. No pleural effusions. No pneumothorax. Right lower lobe nodule measuring 2 cm (series 3, image 151). 0.4 cm right middle lobe nodule (series 3, image 169). Mediastinum: Heart size is normal. No pericardial effusion. No large vessel abnormality. No mediastinal adenopathy by size criteria. Chest wall and lower neck: Thyroid is unremarkable. No axillary or supraclavicular adenopathy by size. Right breast lumpectomy. Calcified right axillary nodules. Bones: Diffuse osseous metastatic disease. Compression deformities of the T1, T3 and T6 vertebral bodies, without endplate retropulsion. No soft tissue mass extending into the spinal canal. Upper Abdomen: Unremarkable. IMPRESSION: Diffuse osseous metastatic disease, with compression deformities of the T1, T3 and T6 vertebral bodies, without endplate retropulsion. No soft tissue mass within the spinal cord identified. Right breast lumpectomy. Calcified right axillary lymph nodes. Right lung pulmonary metastases. Diffuse osseous metastatic disease. Reviewed by: Alex Meza on 03/04/2023 5:18 PM [place] Approved by: Alex Meza on 03/04/2023 5:18 PM [place] ADDENDUM #[address] abdomen pelvis for further discussion regarding the abdominal findings. PROCEDURE: ABDOMEN/PELVIS W INDICATIONS: IV only, increased back pain BRCA w Mets CONTRAST: 100mL Omni 300 TECHNIQUE: After the administration of intravenous contrast, 5 mm thick sections acquired from the diaphragms to the symphysis. 5 mm thick coronal and sagittal reformats were acquired. For radiation dose reduction, the following was used: automated exposure control, adjustment of mA and/or kV according to patient size. COMPARISON: 01/09/2023 FINDINGS: Image quality: Excellent. Lung bases and heart: Please see dedicated chest CT. Liver: New and growing liver metastases. For instance, 1.8 cm segment 7 mass previously measured 0.8 cm (series 2, image 26), and there is a new 1.3 cm segment 2 mass (series 2, image 26). Gallbladder and biliary tree: Cholelithiasis without wall thickening. No biliary dilation. Spleen: No splenomegaly. Pancreas: No pancreatic ductal dilation. Adrenals: No adrenal nodule. Kidneys and ureters: No hydronephrosis. No renal cystic lesion which requires follow up. Subcentimeter fat-containing mass on the superior pole of the right kidney, most consistent with an angiomyolipoma. Bowel and peritoneum: No bowel distension. No pathologic free fluid. Fecal debris within the small bowel. Lymph nodes: No central or retroperitoneal adenopathy. Vessels: No infrarenal aortic aneurysm. PELVIS Reproductive organs: Unremarkable. Bladder: No abnormal wall thickening, accounting for underdistension. Pelvic lymph nodes: No pelvic adenopathy by size criteria. Bones: Diffuse osseous metastatic disease. No intraspinous soft tissue mass. No definite pathologic fracture. Other: No significant ventral or inguinal hernia. IMPRESSION: Diffuse osseous metastatic disease, without pathologic fracture identified. No intraspinous mass identified. New and growing liver metastases. Reviewed by: Alxe Meza on 03/04/2023 5:25 PM AKST Approved by: Alex Meza on 03/04/2023 5:25 PM [place] Station ID: [id number] Report Electronically Signed by Alex Meza MD 03/04/23 1818 03/04/23 1825 Departure - Departure Disposition: 02 Transfer Acute Care Hosp Clinical Impression: Metastatic cancer to bone, Metastatic cancer to brain, Midline shift of brain with brain compression, Hyperglycemia Condition: Serious Forms: PCP List
[2023-03-04] MEDS: DEXAMETHASONE 10 MG/ML VIAL IVP SCH (22:59)
[2023-03-05] MEDS: DEXAMETHASONE 10 MG/ML VIAL IVP SCH ×4 (04:58→21:51)
[2023-03-05] MEDS ORDERED: INSULIN REGULAR HUMAN 300 UNIT/3 ML VIAL SUBQ STA ×2 (07:15→21:46)
--- NOTE | 2023-03-05 08:36 | ED Physician Documentation ---
ED Addendum - Addendum Addendum: 03/05/23 08:34 The patient is eating breakfast. Complains of new onset of left hemianopsia for the last 2 weeks. Remote history of breast cancer 14 years ago with recent metastases of the lung and bone found just the last several months. Apparently the some involvement in the knee or just coincidence knee pains as well. She states discovery of her brain mets just 2 to 3 weeks ago at [facility] with note of the vision loss, ptosis and headache. She has not started treatment for that as yet. She does have an oncologist. Complaining of some headache at this time. At home she had been taking Tylenol and some ibuprofen. She had been started on steroids a couple weeks ago for short course. We can give her some regular scheduled medication for headache, she had previously taken oxycodone for other problems without any side effects. We can use that combined with regular Tylenol and the Decadron. At this point waiting to hear from [facility] to where she has been accepted but waiting for bed availability.
[2023-03-05] MEDS ORDERED: oxyCODONE 5 MG TABLET PO STA (08:40)
[2023-03-05] MEDS ORDERED: INSULIN LISPRO 300 UNIT/3 ML PEN SUBQ PRN (08:42)
[2023-03-05] MEDS ORDERED: oxyCODONE 5 MG TABLET PO PRN (09:00)
[2023-03-05] MEDS: ACETAMINOPHEN 325 MG TABLET PO SCH ×5 (09:25→21:12)
[2023-03-05] MEDS: atenoloL 25 MG TABLET PO SCH (09:25)
[2023-03-05] MEDS: amLODIPine 5 MG TABLET PO SCH (09:25)
[2023-03-05] MEDS: MAGNESIUM OXIDE 400 MG TABLET PO SCH (09:37)
[2023-03-05] MEDS: glipiZIDE 5 MG TABLET PO SCH (10:35)
[2023-03-05] MEDS ORDERED: HYDROmorphone 0.5 MG/0.5 ML SYRINGE IVP STA (14:48)
[2023-03-05] MEDS ORDERED: KETOROLAC 15 MG/ML VIAL IVP STA (14:49)
[2023-03-05] MEDS ORDERED: HALOPERIDOL 5 MG/ML VIAL IVP STA (22:36)
--- NOTE | 2023-03-06 00:06 | ED Physician Documentation ---
ED Addendum - Addendum Addendum: Blood sugar over 500 and given Insulin. Patient is confused about why she is here, at home sleeping. Patient became agitated in the emergency department, she was given Haldol as she has not slept in the past 24 hours. Patient fell asleep in the emergency department. Her blood sugars will continue to be monitored. [facility] was recontacted, there is still no bed available, they state that they should have a bed in the morning. Therefore the patient will be continued on dexamethasone, blood sugars will continue to be checked and monitored overnight. Patient signed out to Dr. Min.
[2023-03-06] MEDS ORDERED: INSULIN LISPRO 300 UNIT/3 ML PEN SUBQ STA (01:08)
[2023-03-06] MEDS ORDERED: INSULIN REGULAR HUMAN 300 UNIT/3 ML VIAL SUBQ ONE (01:24)
--- NOTE | 2023-03-06 03:20 | ED Physician Documentation ---
ED Addendum - Addendum Addendum: Patient is a diabetic who has been boarding in the emergency department awaiting transfer to [facility] for brain mets. She has been on Decadron and her blood glucose has been elevated throughout the day.I have added a sliding scale to her orders and have also given her 10 units of subcu insulin this evening for a blood glucose of 527
[2023-03-06 03:27] LABS: BASOPHILS % (AUTO) 0.1 %; HCT - HEMATOCRIT 27.6 % (37.0-47.0); HGB - HEMOGLOBIN 8.7 g/dL (12.0-16.0); LYMPHOCYTES # (AUTO) 0.4 10^3/uL (1.5-3.5); LYMPHOCYTES % (AUTO) 5.2 %; MEAN CORPUSCULAR HGB CONC 31.5 g/dL (32.0-36.0); MEAN PLATELET VOLUME 8.9 fL (7.9-10.8); MONOCYTES # (AUTO) 0.3 10^3/uL (0.0-1.0); MONOCYTES % (AUTO) 3.7 %; NEUTROPHILS # (AUTO) 7.1 10^3/uL (1.5-6.6); NEUTROPHILS % (AUTO) 89.9 %; NRBC ABSOLUTE COUNT (AUTO) 0.03 x10^3/uL; NUCLEATED RED BLOOD CELLS AUTO 0.4 /100WBC; PLT - PLATELET COUNT 186 10^3/uL (130-450); RED CELL DISTRIBUTION WIDTH 17.3 % (12.0-15.0); WHITE BLOOD COUNT 7.9 x10^3/uL (4.8-10.8)
[2023-03-06 03:28] LABS: CREATININE 0.9 mg/dL (0.4-1.0); POTASSIUM 4.4 mmol/L (3.5-5.0)
[2023-03-06 03:29] LABS: ALBUMIN/GLOBULIN RATIO 0.9 (1.0-2.2); BILIRUBIN,TOTAL 0.3 mg/dL (0.2-1.0); CALCIUM 8.5 mg/dL (8.5-10.3); TOTAL PROTEIN 6.4 g/dL (6.7-8.2)
[2023-03-06] MEDS: DEXAMETHASONE 10 MG/ML VIAL IVP SCH ×2 (04:05→11:26)
[2023-03-06] MEDS ORDERED: INSULIN LISPRO 300 UNIT/3 ML PEN SUBQ SCH (08:00)
[2023-03-06] MEDS: amLODIPine 5 MG TABLET PO SCH (08:27)
[2023-03-06] MEDS: glipiZIDE 5 MG TABLET PO SCH (08:27)
[2023-03-06] MEDS: MAGNESIUM OXIDE 400 MG TABLET PO SCH (08:28)
[2023-03-06] MEDS: INSULIN LISPRO 300 UNIT/3 ML PEN SUBQ SCH ×2 (08:38→12:02)
[2023-03-06] MEDS: atenoloL 25 MG TABLET PO SCH (09:36)
[2023-03-06] MEDS: ACETAMINOPHEN 325 MG TABLET PO SCH (09:36)
--- NOTE | 2023-03-06 12:12 | ED Physician Documentation ---
ED Addendum - Addendum Addendum: 03/06/23 12:08 The patient and her are both here in the ER for. They are resting comfortably. The patient # a has a lot less symptoms than she had previously but is still having the some degree of ptosis and vision loss on the left. Otherwise is conversant with normal motor exam on the extremities. [facility] states the did not have any beds this morning but were expecting a lot of discharges and hopefully were fairly likely to be able to accept transfer this afternoon. However not guaranteed. The patient states she is weary and tired of being here in the ER and wants to be discharged. I reviewed the benefits and risks with them and she is accepting of that. I reviewed the main risk is worsening of symptoms and progression of focal deficits from the mass and edema. This could progress enough to lead to coma and . They were encouraged to return to an ER and perhaps a larger facility with any progression of symptoms. I wrote for continuation of her Decadron and also some ondansetron. Her blood sugars have been elevated related to the steroids. She is on some diabetes medicines at home and should continue with those. I did talk to her oncologist Dr. Conner who states the discharge is unsafe and she needs transferring. I conveyed to him that that is the ideal but they are signing out and I asked if he could try to facilitate more prompt outpatient follow-up and treatment. We did fill out the declination of care form and the patient will be discharged home. I did send prescriptions for them to their preferred pharmacy. Disposition: Discharged AGAINST MEDICAL ADVICE This diagnoses: 1. Focal facial and vision deficit 2. Brain metastasis with swelling 3. History of breast cancer, metastatic 4. Diabetes with hyperglycemia 5. Steroid affected hyperglycemia
[2023-03-06 12:32] VITALS: BP 116/80; O2SAT 96
== END 2023-03-06 12:32 | disposition left against medical advice (07) ==
LOC: ED 14:33
DX: C79.31 Secondary malignant neoplasm of brain (principal); C79.51 Secondary malignant neoplasm of bone; C78.7 Secondary malignant neoplasm of liver and intrahepatic bile duct; G93.5 Compression of brain; I10 Essential (primary) hypertension; E11.65 Type 2 diabetes mellitus with hyperglycemia; H53.47 Heteronymous bilateral field defects; Z85.3 Personal history of malignant neoplasm of breast; Z79.899 Other long term (current) drug therapy; Z53.29 Procedure and treatment not carried out because of patient's decision for other reasons
CPT/HCPCS: 36415; 70470; 71260; 74177; 80053; 83735; 84100; 85025; 87635; 96374; 96375; 99285; A9270; J1170; J1815; Q9967